=== PATIENT | female | born 1990 | race Caucasian/White ===

== ENCOUNTER 2022-05-09 00:27 | Inpatient (IN) | payer OTHER ==
[2022-05-09] MEDS ORDERED: DEXTROSE 5%-LACTATED RINGERS 1,000 ML IV SCH (01:00)
[2022-05-09 02:28] VITALS: BMI 41.1
[2022-05-09 02:34] LABS: BASO % 0.2 % (0-2.0); HEMATOCRIT 35.8 % (32.4-45.2); HEMOGLOBIN 11.7 GM/dL (10.7-15.3); LYMPH % 22.9 % (8-40); MCH 26.1 pg (25.7-33.7); MCHC 32.6 g/dl (32.0-36.0); MEAN CELL VOLUME 79.9 fl (80-96); MEAN PLT VOLUME 10.5 fl (7.5-11.1); MONO % 4.2 % (3.8-10.2); NEUT % 71.7 % (42.8-82.8); PLATELET COUNT 291 10^3/uL (134-434); RBC 4.48 M/mm3 (3.60-5.2); RDW 16.1 % (11.6-15.6); WHITE BLOOD COUNT 10.7 K/mm3 (4.0-10.0)
[2022-05-09 02:44] LABS: INR 0.96 (0.83-1.09)
[2022-05-09 02:46] LABS: ACTIVATED PTT 26.8 SECONDS (25.2-36.5)
[2022-05-09 02:52] LABS: CALCIUM 8.9 mg/dL (8.5-10.1)
[2022-05-09 02:53] LABS: BLOOD UREA NITROGEN 13.6 mg/dL (7-18)
[2022-05-09 02:57] LABS: CREATININE 0.6 mg/dL (0.55-1.3)
[2022-05-09] MEDS ORDERED: LACTATED RINGERS SOLUTION 1,000 ML IV ONE (03:00)
[2022-05-09 03:20] LABS: SYPHILIS W/ RPR CONF NON-REACTIVE (NONREACTIVE)
[2022-05-09 03:48] LABS: HIV INTERPRETATION NEGATIVE (NEGATIVE)
[2022-05-09] MEDS ORDERED: OXYTOCIN 30 UNITS in 0.9% NS 30 UNIT/500 ML INFUS.BAG IVPB SCH (08:30)
[2022-05-09] MEDS ORDERED: FENTANYL/BUPIVACAINE/NS/PF - PCEA - 50 ML DISP.SYRIN EP ONE (10:57)
[2022-05-09] MEDS: ELECTROLYTE-148 SOLN 1,000 ML IV SCH (11:00)
[2022-05-09] MEDS ORDERED: BUPIVACAINE HCL/PF 0.25% (2.5MG/ML) 10 ML VIAL ONE (11:14)
[2022-05-09] MEDS ORDERED: NALOXONE HCL 0.4 MG/ML VIAL IVPUSH PRN (11:37)
[2022-05-09] MEDS ORDERED: FENTANYL/BUPIVACAINE/NS/PF - PCEA - 50 ML DISP.SYRIN EP SCH (11:45)
[2022-05-09] MEDS ORDERED: OXYTOCIN 20 UNITS in 0.9% NS 20 UNIT/1,000 ML INFUS.BAG IV ONE (13:22)
[2022-05-09] MEDS ORDERED: BENZOCAINE 28 GM HEMORRHOIDAL OINTMENT TP PRN (14:49)
[2022-05-09] MEDS ORDERED: oxyCODONE HCL 5 MG TABLET PO PRN (14:49)
[2022-05-09] MEDS ORDERED: BENZOCAINE 20% 57 GM BOTTLE TP PRN (14:49)
[2022-05-09] MEDS ORDERED: BISACODYL 10 MG SUPP.RECT RC PRN (14:49)
[2022-05-09] MEDS ORDERED: WITCH HAZEL 50% (TUCKS) 40 PAD/JAR PAD TP PRN (14:49)
[2022-05-09] MEDS ORDERED: METHYLERGONOVINE MALEATE 0.2 MG/1 ML AMP IM PRN (14:49)
[2022-05-09] MEDS ORDERED: OXYTOCIN 20 UNITS in 0.9% NS 20 UNIT/1,000 ML INFUS.BAG IV SCH (15:00)
[2022-05-09] MEDS: ACETAMINOPHEN 325 MG TABLET (FP) PO PRN (15:43)
[2022-05-09] MEDS: IBUPROFEN 600 MG TABLET (FP) PO PRN (21:08)
[2022-05-10] MEDS: ACETAMINOPHEN 325 MG TABLET (FP) PO PRN (03:45)
[2022-05-10] MEDS: IBUPROFEN 600 MG TABLET (FP) PO PRN ×2 (07:33→19:16)
[2022-05-10 08:09] LABS: BASO % 0.5 % (0-2.0); EOS % 1.5 % (0-4.5); HEMATOCRIT 33.6 % (32.4-45.2); HEMOGLOBIN 10.8 GM/dL (10.7-15.3); LYMPH % 25.1 % (8-40); MCH 25.7 pg (25.7-33.7); MCHC 32.3 g/dl (32.0-36.0); MEAN CELL VOLUME 79.7 fl (80-96); MEAN PLT VOLUME 9.8 fl (7.5-11.1); MONO % 6.5 % (3.8-10.2); NEUT % 66.4 % (42.8-82.8); PLATELET COUNT 248 10^3/uL (134-434); RBC 4.21 M/mm3 (3.60-5.2); RDW 16.3 % (11.6-15.6); WHITE BLOOD COUNT 11.6 K/mm3 (4.0-10.0)
[2022-05-10] MEDS: ELECTROLYTE-148 SOLN 1,000 ML IV SCH (09:08)
[2022-05-10] MEDS: PRENATAL VITAMINS W/ FOLIC ACID TABLET (FP) PO SCH (11:00)
[2022-05-10 20:18] VITALS: PULSE 80; RESP 20; TEMP 98
[2022-05-10] MEDS ORDERED: SENNOSIDES/DOCUSATE COMBO (SENNA PLUS) TABLET (UD) PO PRN (22:00)
[2022-05-11] MEDS: IBUPROFEN 600 MG TABLET (FP) PO PRN (01:23)
[2022-05-11] MEDS: PRENATAL VITAMINS W/ FOLIC ACID TABLET (FP) PO SCH (09:04)
[2022-05-11] MEDS: ACETAMINOPHEN 325 MG TABLET (FP) PO PRN (09:04)
[2022-05-11 10:32] VITALS: BP 115/75
== END 2022-05-11 12:15 | disposition home or self-care (01) | DRG 560 ==
LOC: JLDR 00:27 → J3W 15:10
PROVIDERS: ADMIT Obstetrics & Gynecology; ATTEND Obstetrics & Gynecology
PROC: 10E0XZZ Delivery of Products of Conception, External Approach (ICD-10-PCS; principal; 2022-05-09)
DX: O70.0 First degree perineal laceration during delivery (principal); Z3A.40 40 weeks gestation of pregnancy; Z37.0 Single live birth
CPT/HCPCS: 36415; 59409; 80048; 85025; 85610; 85730; 86780; 86850; 86900; 86901; 87389; C9803-CS; U0003; U0005